=== PATIENT | male | born 1945 | race Caucasian/White ===

== ENCOUNTER 2017-12-24 15:39 | Emergency (ER) | payer MEDICARE, BC ==
--- NOTE | 2017-12-24 17:03 | RAD ---
INDICATION: Chest pain. COMPARISON: Comparison is made with a prior study from February 20, 2013. TECHNIQUE: A portable view of the chest was obtained. FINDINGS: Cardiac and mediastinal contours appear to be within normal limits. The lungs are underinflated and clear. No pleural effusion is seen. IMPRESSION: NO EVIDENCE FOR ACUTE DISEASE.
[2017-12-24 18:36] LABS: ABS Basophils 0 10^3/ul (0-0.2); ABS Eosinophils 0.1 10^3/ul (0-0.6); ABS Lymphocytes 0.5 10^3/ul (1.0-4.8); ABS Monocytes 0.6 10^3/ul (0-0.8); ABS Neutrophils 9.2 10^3/ul (1.5-7.7); ABS Nucleated RBC 0 10^3/ul; Eosinophil % 0.5 % (0-6); Hematocrit 49 % (42-52); Hemoglobin 17.3 g/dl (14.0-18.0); Lymphocyte % 4.9 % (25-47); Mean Corpuscular HGB Conc 35 g/dl (31-36); Mean Corpuscular Hemoglobin 31 pg (27-31); Mean Corpuscular Volume 89 fL (80-94); Mean Platelet Volume 8 um3 (7.4-10.4); Nucleated Red Blood Cells % 0; Platelet Count 171 10^3/ul (150-450); Red Blood Count 5.52 10^6/ul (4.0-5.4); Red Cell Distribution Width 13 % (10.5-15); White Blood Count 10.4 10^3/ul (3.5-10.8)
[2017-12-24] MEDS ORDERED: Lidocaine 2% VISCOUS* 15 ML UDC PO ONE (18:38)
[2017-12-24] MEDS ORDERED: Al Hydrox/Mg Hydrox/Simet LIQ* 30 ML UDC PO ONE (18:38)
[2017-12-24 18:57] LABS: EGFR Non-African American 77.2 (>60)
[2017-12-24 19:07] LABS: INR 1.09 (0.77-1.02)
[2017-12-24 23:15] VITALS: BP 135/71
--- NOTE | 2017-12-24 23:36 | ED ---
I, Caroline Godfrey, scribed for Edwardo Perez MD on 12/24/17 at 2255 . Re-Evaluation - Re-Evaluation First Eval Re-Evaluation Time: 22:53 Change: Improved Comment: Patient states that he is feeling much better. We discussed lab results and recommended patient follow up with [facility] in the next few days. Patient agrees and understands discharge instructions. Course/Dx - Course Course Of Treatment: currently chest pain free - Diagnoses Provider Diagnoses: Chest pain The documentation as recorded by the Epifanio parker Tecjoon accurately reflects the service I personally performed and the decisions made by me, Edwardo Perez MD.
--- NOTE | 2017-12-25 16:32 | ED ---
Dong Yoder Nilda, scribed for David Gamez MD on 12/24/17 at 1624 . HPI Chest Pain - HPI Summary HPI Summary: This patient is a 72 year old M presenting to [facility] accompanied by family with a chief complaint of left sided CP radiates to throat since earlier today. Pain is characterized as pressure at chest but burning when radiating to neck. The patient rates the pain 2/10 and 3/10 (at its worst) in severity. Symptoms aggravated by nothing and alleviated by NTG and ASA. Patient reports nausea, but denies sour taste in mouth, SOB, and dizziness. Pt states this episode is not acid reflux. PMHx includes HTN, HLD, and GERD. - History of Current Complaint Chief Complaint: EDChestPainROMI Time Seen by Provider: 12/24/17 15:54 Hx Obtained From: Patient Onset/Duration: Started Hours Ago Timing: Constant Current Severity: Mild Pain Intensity: 2 Pain Scale Used: 0-10 Numeric Chest Pain Location: Mid Sternal Chest Pain Radiates: Yes Chest Pain Radiates To:: Other - throat Character: Burning, Pressure/Squeezing Aggravating Factor(s): Nothing Alleviating Factor(s): NTG 123, Other: - ASA Associated Signs and Symptoms: Positive: Other: - nausea, but denies sour taste in mouth, SOB, and dizziness - Allergy/Home Medications Allergies/Adverse Reactions: Allergies Allergy/AdvReac Type Severity Reaction Status Date / Time MS Sulfa Drugs [Sulfa Drugs] Allergy Severe Anaphylatic Verified 06/15/16 12:08 Shock MS Amoxicillin [Amoxicillin] Allergy Intermediate Nausea And Verified 06/15/16 12:08 Vomiting MS Clavulanic Acid Allergy Nausea Verified 06/15/16 12:08 [From Augmentin] MS Codeine [Codeine] Allergy Altered Verified 06/15/16 12:08 Mental Status MS Erythromycin Allergy Nausea Verified 06/15/16 12:08 [Erythromycin] MS Nifedipine Allergy Swelling Verified 06/15/16 12:08 [From Procardia] bees Allergy Anaphylatic Uncoded 06/15/16 12:08 Shock Home Medications: Home Medications EPINEPHrine SYR* [EPINEPHphrine SYR*] 0.3 mg IM ONCE PRN 12/24/17 [History Confirmed 12/24/17] Econazole 1% CREAM (NF) [Econazole 1 % CREAM (NF)] 1 applic TOPICAL DAILY PRN [History Confirmed 12/24/17] Fluticasone NASAL SPRAY 50MCG* [Flonase NASAL SPRAY 50MCG*] 2 spray BOTH NARES BEDTIME 12/24/17 [History Confirmed 12/24/17] Hydrochlorothiazide TAB* [Hydrodiuril TAB*] 25 mg PO QAM 12/24/17 [History Confirmed 12/24/17] Mometasone Furoate [Elocon] 0.1 % TOPICAL DAILY 12/24/17 [History Confirmed 01/09] Omeprazole CAP* [Prilosec CAP* 20 MG] 20 mg PO DAILY 12/24/17 [History Confirmed 12/24/17] Potassium Chlor TAB* [Klor Con ER TAB*] 10 meq PO QAM 12/24/17 [History Confirmed 12/24/17] Ramipril CAP* [Altace CAP*] 10 mg PO BEDTIME 12/24/17 [History Confirmed ] Tamsulosin CAP* [Flomax CAP*] 0.4 mg PO DAILY 12/24/17 [History Confirmed ] traZODone TAB* [Desyrel TAB*] 50 mg PO DAILY 12/24/17 [History Confirmed ] PMH/Surg Hx/FS Hx/Imm Hx Endocrine/Hematology History: Denies: Hx Diabetes Cardiovascular History: Reports: Hx Hypertension Denies: Hx Pacemaker/ICD GI History: Reports: Hx Gastroesophageal Reflux Disease History: Reports: Hx Benign Prostatic Hyperplasia Sensory History: Denies: Hx Hearing Aid Psychiatric History: Denies: Hx Panic Disorder - Cancer History Cancer Type, 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 - Surgical History Surgery Procedure, Year, and Place: CARDIAC STENT, CATARACTS, VASECTOMY; ventriculoperitoneal shuntSep 2015 Infectious Disease History: No Infectious Disease History: Reports: Hx Shingles Denies: Hx Clostridium Difficile, Hx Hepatitis, Hx Human Immunodeficiency Virus (HIV), Hx of Known/Suspected MRSA, Hx Tuberculosis, Hx Known/Suspected VRE , Hx Known/Suspected VRSA, History Other Infectious Disease, Traveled Outside the [place] in Last 30 Days - Family History Known Family History: Positive: Hypertension, Other - CA - Social History Alcohol Use: Occasionally Substance Use Type: Reports: None Smoking Status (MU): Former Smoker Review of Systems Positive: Other - negative sour taste in mouth Positive: Chest Pain - L-sided, radiating of chest under chin Negative: Shortness Of Breath Positive: Nausea Neurological: Other - negative dizziness All Other Systems Reviewed And Are Negative: Yes Physical Exam - Summary Physical Exam Summary: VITAL SIGNS: Reviewed. GENERAL: Patient is a well-developed and nourished male who is lying comfortable in the stretcher. Patient is not in any acute respiratory distress. HEAD AND FACE: No signs of trauma. No ecchymosis, hematomas or skull depressions. No sinus tenderness. EYES: PERRLA, EOMI x 2, No injected conjunctiva, no nystagmus. EARS: Hearing grossly intact. Ear canals and tympanic membranes are within normal limits. MOUTH: Oropharynx within normal limits. NECK: Supple, trachea is midline, no adenopathy, no JVD, no carotid bruit, no c- spine tenderness, neck with full ROM. CHEST: Symmetric, no tenderness at palpation LUNGS: Clear to auscultation bilaterally. No wheezing or crackles. CVS: Regular rate and rhythm, S1 and S2 present, no murmurs or gallops appreciated. ABDOMEN: Soft, non-tender. No signs of distention. No rebound no guarding, and no masses palpated. Bowel sounds are normal. EXTREMITIES: FROM in all major joints, no edema, no cyanosis or clubbing. NEURO: Alert and oriented x 3. No acute neurological deficits. Speech is normal and follows commands. SKIN: Dry and warm Triage Information Reviewed: Yes Vital Signs On Initial Exam: Initial Vitals Temp Pulse Resp BP Pulse Ox 99.1 F 101 16 148/82 97 12/24/17 15:43 12/24/17 15:43 12/24/17 15:43 12/24/17 15:43 12/24/17 15:43 Vital Signs Reviewed: Yes Diagnostics - Vital Signs Vital Signs Temp Pulse Resp BP Pulse Ox 12/24/17 16:00 89 20 95 12/24/17 15:54 88 18 96 12/24/17 15:53 125/76 12/24/17 15:43 99.1 F 101 16 148/82 97 - Laboratory Lab Results: Lab Results 12/24/17 12/24/17 12/24/17 Range/Units 18:23 18:23 18:23 WBC (3.5-10.8) 10^3/ul RBC (4.0-5.4) 10^6/ul Hgb (14.0-18.0) g/dl Hct (42-52) % MCV (80-94) fL MCH (27-31) pg MCHC (31-36) g/dl RDW (10.5-15) % Plt Count (150-450) 10^3/ul MPV (7.4-10.4) um3 Neut % (Auto) (38-83) % Lymph % (Auto) (25-47) % [place] % (Auto) (1-9) % Eos % (Auto) (0-6) % Baso % (Auto) (0-2) % Absolute Neuts (auto) (1.5-7.7) 10^3/ul Absolute Lymphs (auto) (1.0-4.8) 10^3/ul Absolute Monos (auto) (0-0.8) 10^3/ul Absolute Eos (auto) (0-0.6) 10^3/ul Absolute Basos (auto) (0-0.2) 10^3/ul Absolute Nucleated RBC 10^3/ul Nucleated RBC % INR (Anticoag Therapy) 1.09 H (0.77-1.02) APTT 31.1 (26.0-36.3) seconds Sodium 133 (133-145) mmol/L Potassium 4.2 (3.5-5.0) mmol/L Chloride 102 (101-111) mmol/L Carbon Dioxide 25 (22-32) mmol/L Anion Gap 6 (2-11) mmol/L BUN 19 (6-24) mg/dL Creatinine 0.96 (0.67-1.17) mg/dL Est GFR ( Amer) 99.3 (>60) Est GFR (Non-Af Amer) 77.2 (>60) BUN/Creatinine Ratio 19.8 (8-20) Glucose 100 (70-100) mg/dL Calcium 8.4 L (8.6-10.3) mg/dL Magnesium 2.0 (1.9-2.7) mg/dL Total Bilirubin 1.00 (0.2-1.0) mg/dL AST 8 L (13-39) U/L ALT 10 (7-52) U/L Alkaline Phosphatase 64 (34-104) U/L Total Creatine Kinase 35 (10-223) U/L CK-MB (CK-2) 1.6 (0.6-6.3) ng/mL Troponin I 0.01 (<0.04) ng/mL B-Natriuretic Peptide 30 ( - 100) pg/mL Total Protein 6.1 L (6.4-8.9) g/dL Albumin 3.6 (3.2-5.2) g/dL Globulin 2.5 (2-4) g/dL Albumin/Globulin Ratio 1.4 (1-3) TSH 0.74 (0.34-5.60) mcIU/mL 12/24/17 12/24/17 Range/Units 18:23 21:52 WBC 10.4 (3.5-10.8) 10^3/ul RBC 5.52 H (4.0-5.4) 10^6/ul Hgb 17.3 (14.0-18.0) g/dl Hct 49 (42-52) % MCV 89 (80-94) fL MCH 31 (27-31) pg MCHC 35 (31-36) g/dl RDW 13 (10.5-15) % Plt Count 171 (150-450) 10^3/ul MPV 8 (7.4-10.4) um3 Neut % (Auto) 88.3 H (38-83) % Lymph % (Auto) 4.9 L (25-47) % [place] % (Auto) 6.0 (1-9) % Eos % (Auto) 0.5 (0-6) % Baso % (Auto) 0.3 (0-2) % Absolute Neuts (auto) 9.2 H (1.5-7.7) 10^3/ul Absolute Lymphs (auto) 0.5 L (1.0-4.8) 10^3/ul Absolute Monos (auto) 0.6 (0-0.8) 10^3/ul Absolute Eos (auto) 0.1 (0-0.6) 10^3/ul Absolute Basos (auto) 0 (0-0.2) 10^3/ul Absolute Nucleated RBC 0 10^3/ul Nucleated RBC % 0 INR (Anticoag Therapy) (0.77-1.02) APTT (26.0-36.3) seconds Sodium (133-145) mmol/L Potassium (3.5-5.0) mmol/L Chloride (101-111) mmol/L Carbon Dioxide (22-32) mmol/L Anion Gap (2-11) mmol/L BUN (6-24) mg/dL Creatinine (0.67-1.17) mg/dL Est GFR ( Amer) (>60) Est GFR (Non-Af Amer) (>60) BUN/Creatinine Ratio (8-20) Glucose (70-100) mg/dL Calcium (8.6-10.3) mg/dL Magnesium (1.9-2.7) mg/dL Total Bilirubin (0.2-1.0) mg/dL AST (13-39) U/L ALT (7-52) U/L Alkaline Phosphatase (34-104) U/L Total Creatine Kinase (10-223) U/L CK-MB (CK-2) (0.6-6.3) ng/mL Troponin I 0.01 (<0.04) ng/mL B-Natriuretic Peptide ( - 100) pg/mL Total Protein (6.4-8.9) g/dL Albumin (3.2-5.2) g/dL Globulin (2-4) g/dL Albumin/Globulin Ratio (1-3) TSH (0.34-5.60) mcIU/mL Result Diagrams: 12/24/17 18:23 12/24/17 18:23 Lab Statement: Any lab studies that have been ordered have been reviewed, and results considered in the medical decision making process. - Radiology CXR Radiology Interpretation Completed By: Radiologist - CXR reveals no evidence for acute disease. Dr. Gamez has reviewed this radiology report. - EKG 1547 Cardiac Rate: NL EKG Rhythm: Sinus Rhythm - 90 bpm EKG Interpretation: no ST elevations Chest Pain Course/Dx - Course Assessment/Plan: This patient is a 72 year old M presenting to [facility] accompanied by family with a chief complaint of left sided CP radiates to throat since earlier today. Pain is characterized as pressure at chest but burning when radiating to neck. The patient rates the pain 2/10 and 3/10 (at its worst) in severity. Symptoms aggravated by nothing and alleviated by NTG and ASA. Patient reports nausea, but denies sour taste in mouth, SOB, and dizziness. Pt states this episode is not acid reflux. PMHx includes HTN, HLD, and GERD. An EKG reveals NSR 90 bpm, no ST elevations. CXR, per radiologist, reveals no evidence for acute disease. Dr. Gamez has reviewed this radiology report. The pt is hemodynamically stable, alert and oriented x3. This pt will be s/o to Dr. Perez, pending dispo, awaiting second Trop. - Chest Pain Differential Diagnosis/HQI/PQRI: Acute PR, ACS, Angina, CHF, Chest Wall, GI Disease, Lower Respiratory Infection - Diagnoses Provider Diagnoses: Chest pain Discharge - Discharge Plan Condition: Stable Disposition: OTHER Discharge Disposition Comment: This pt will be s/o to Dr. Perez, pending dispo, awaiting second Trop. Patient Education Materials: Chest Pain (ED) Referrals: Cristi Agustin MD [Primary Care Provider] - Raymond Caballero MD [Medical Doctor] - Additional Instructions: PLEASE MAKE AN APPOINTMENT FIRST THING IN THE MORNING TO BE SEEN BY DR. CABALLERO WITHIN 1 WEEK PLEASE RETURN IMMEDIATELY TO THE ER IF YOU HAVE ANY WORSENING OR CONCERNING SYMPTOMS PLEASE MAKE AN APPOINTMENT TO BE SEEN BY YOUR PRIMARY CARE DOCTOR WITHIN 1 WEEK The documentation as recorded by the Dong parker Nilda accurately reflects the service I personally performed and the decisions made by me, David Gamez MD.
== END 2017-12-24 23:15 ==
LOC: ED 15:39
DX: R07.9 Chest pain, unspecified (principal); I10 Essential (primary) hypertension; E78.5 Hyperlipidemia, unspecified; K21.9 Gastro-esophageal reflux disease without esophagitis; Z87.891 Personal history of nicotine dependence; Z88.3 Allergy status to other anti-infective agents; Z88.5 Allergy status to narcotic agent; Z88.2 Allergy status to sulfonamides; Z88.8 Allergy status to other drugs, medicaments and biological substances
CPT/HCPCS: 36415; 71045; 80053; 82550; 82553; 83735; 83880; 84443; 84484; 85025; 85610; 85730; 93005; 99284; A9270-GY